=== PATIENT | male | born 1965 | race African-American/Black ===

== ENCOUNTER 2020-07-08 06:21 | Day surgery (SDC) | payer BC ==
[~2020-07-08] VITALS: Ht 180.3 cm; Wt 109.2 kg
[~2020-07-08 06:21] MED LIST: FLOMAX 0.40.4 MG/CAP PO; PERCOCET 325 MG1 TA2 PO; ZOFRAN 4MG T4 MG/TAB PO
[2020-07-08] MEDS ORDERED: NORVASC 10MG10 MG PO (07:06)
[2020-07-08] MEDS ORDERED: HCTZ12.5TAB PO (07:08)
[2020-07-08] MEDS ORDERED: VIT D2 (07:10)
[2020-07-08 07:11] VITALS: BP 120/93; PULSE 92; TEMP 97.5
[2020-07-08 08:09] VITALS: BP 121/87; PULSE 69; TEMP 96.8
--- NOTE | 2020-07-08 08:09 | NUR ---
PT RETURNS TO RM 1 IN ENDOSCOPY BAY AFTER COLONOSCOPY VIA CART ACCOMPANIED BY Arnel BISWAS RN. PT AMBULATES TO CHAIR WITH STANDBY ASSISTANCE. GAIT STABLE. PT ALERT AND ORIENTED, VITALS WNL. ABDOMEN SOFT. PT DENIES PAIN OR NAUSEA. WATER PROVIDED. CALL LIGHT IN REACH.
[2020-07-08 08:15] VITALS: BP 129/96; PULSE 68
--- NOTE | 2020-07-08 08:24 | NUR ---
DR. COOK IN TO TALK WITH PATIENT.
[2020-07-08 08:30] VITALS: BP 122/93; PULSE 62
--- NOTE | 2020-07-08 08:30 | NUR ---
PT RESTING IN CHAIR. ATE BLUEBERRY MUFFIN AND DRANK ENTIRE GLASS OF WATER WITH NO DIFFICULTY. PT DENIES NAUSEA. IV DISCONTINUED. PT UP AND PUT ON CLOTHING. GLASS OF APPLE JUICE PROVIDED.
--- NOTE | 2020-07-08 08:45 | NUR ---
DISCHARGE INSTRUCTIONS PROVIDED. PT VERBALIZES UNDERSTANDING, DENIES FURTHER QUESTIONS OR COMPLAINTS. ATTEMPTED TO CALL RIDE X2, NO ANSWER. LEFT MESSAGE TO CALL BACK. PT RESTING IN CHAIR, CALL LIGHT IN REACH. APPLE JUICE PROVIDED.
--- NOTE | 2020-07-08 09:30 | NUR ---
PT TO WAITING ROOM VIA WHEEL CHAIR. PT STILL WAITING ON RIDE. BELONGINGS AND DISCHARGE INSTRUCTIONS SENT WITH PATIENT. PT DENIES NEEDS OR COMPLAINTS AT THIS TIME.
--- NOTE | 2020-07-08 10:00 | NUR ---
PT RESTING IN WAITING ROOM, DENIES NEEDS. ATTEMPTED TO CALL RIDE AGAIN WITH DIFFERENT NUMBER PROVIDED BY PT. NO ANSWER, LEFT MESSAGE TO CALL BACK.
== END 2020-07-08 09:30 | disposition home or self-care (01) ==
LOC: SDCO 06:21
DX: Z12.11 Encounter for screening for malignant neoplasm of colon (principal); K64.0 First degree hemorrhoids; I10 Essential (primary) hypertension; Z83.3 Family history of diabetes mellitus; F17.210 Nicotine dependence, cigarettes, uncomplicated
CPT/HCPCS: J2704; J7120

== ENCOUNTER 2021-12-15 23:24 | Emergency (ER) | payer SELFPAY ==
[~2021-12-15] VITALS: Ht 180.3 cm; Wt 105.5 kg
[~2021-12-15 23:24] MED LIST changes: +HCTZ12.5TAB PO; +NORVASC 10MG10 MG PO; +VIT D2
[2021-12-15 23:44] VITALS: TEMP 98
[2021-12-16] MEDS ORDERED: FLEXERIL 1010 MG/TAB PO (00:40)
[2021-12-16 00:55] VITALS: BP 149/98; PULSE 85
[2021-12-17] MEDS ORDERED: PERCOCET 325 MG1 TA2 PO (14:36)
== END 2021-12-16 00:57 | disposition home or self-care (01) ==
LOC: COL.ER 23:24
DX: M25.511 Pain in right shoulder (principal); F17.200 Nicotine dependence, unspecified, uncomplicated

== ENCOUNTER 2021-12-17 12:04 | Emergency (ER) | payer OTHER ==
[~2021-12-17] VITALS: Ht 180.3 cm; Wt 105.5 kg
[~2021-12-17 12:04] MED LIST changes: +FLEXERIL 1010 MG/TAB PO
[2021-12-17 12:32] VITALS: TEMP 98.2
[2021-12-17] MEDS ORDERED: PERCOCET 325 MG1 TA2 PO (14:36)
[2021-12-17 14:55] VITALS: BP 167/94; PULSE 76
== END 2021-12-17 15:00 | disposition home or self-care (01) ==
LOC: COL.ER 12:04
DX: M25.511 Pain in right shoulder (principal); F17.200 Nicotine dependence, unspecified, uncomplicated; X50.0XXA Overexertion from strenuous movement or load, initial encounter; Y92.59 Other trade areas as the place of occurrence of the external cause; Y99.0 Civilian activity done for income or pay
CPT/HCPCS: J2270

== ENCOUNTER 2021-12-19 05:55 | Emergency (ER) | payer OTHER ==
[~2021-12-19] VITALS: Ht 180.3 cm; Wt 105.5 kg
[2021-12-19 06:13] VITALS: BP 123/91; TEMP 98.1
[2021-12-19] MEDS ORDERED: NAPROSYN500 MG PO (07:19)
[2021-12-19] MEDS ORDERED: MORPHINE 1515 MG/TAB PO (07:19)
[2021-12-19 07:55] VITALS: PULSE 80
== END 2021-12-19 07:55 | disposition home or self-care (01) ==
LOC: COL.ER 05:55
DX: M54.10 Radiculopathy, site unspecified (principal)
CPT/HCPCS: J1885